=== PATIENT | female | born 1965 | race Caucasian/White ===

== ENCOUNTER 2017-07-30 18:12 | Emergency (ER) | END 2017-07-30 18:42 | disposition home or self-care (01) ==

== ENCOUNTER 2018-09-26 03:21 | Emergency (ER) | payer OTHER ==
[~2018-09-26] VITALS: Wt 96.3 kg
[~2018-09-26 03:21] MED LIST: ALBU8.5H8; ASPI-903 PO; ATOR10TA65 PO; CETI10CA PO; CITA-98 PO; DIVA500T34 PO; LANS30CA47 PO; LORA-408 PO; METO-448 PO; OLAN20TA3 PO; PETR5OIN3 TOP; PROM6.256; TRAM50TA2 PO
[2018-09-26] MEDS ORDERED: ONDANSETRON (ODT) 4 MG TAB ODT STA (05:19)
--- NOTE | 2018-09-26 05:19 | ERD ---
ER Documentation Chief Complaint Chief Complaint bib ra [id number] c/o headache/vomiting after eating about 2 hours ago HPI This is a 53-year-old female who was brought in by ambulance emergency d tio from her boarding care. Stated that she developed headache vomited once with nonbilious and nonbloody emesis after eating a chicken and 7-Up. Stated that the chicken does not taste good. LMP: Denies headache, head injury, loss of consciousness, dizziness, neck pain, neck stiffness, throat pain, difficulty swallowing, difficulty breathing lying flat, shoulder pain, chest pain, back pain, abdominal pain, nausea, vomiting, constipation, diarrhea, urinary symptoms, or possibility being , loss of bowel and bladder control, trauma, injury, falls, difficulty walking due to pain, numbness or tingling sensation, calf pain, recent travel, recent major surgery in the last 3 weeks, calf pain, recent long travel, recent exposure to any illness, recent antibiotic use in the last 3 months, fever, chills, seizures. Past medical history: Hyperlipidemia. Surgical history: Social: Denies smoking, use of alcoholic beverages, use of illegal drugs. ROS All systems reviewed and are negative except as per history of present illness. Medications Home Meds Active Scripts Acetaminophen* (Tylophen*) 500 Mg Capsule, 1 CAP PO Q6H PRN for PAIN AND OR ELEVATED TEMP, #20 CAP Prov:WILL TORRE F 09/26/18 Omeprazole* (Omeprazole*) 40 Mg Capsule.dr, 40 MG PO DAILY, #30 CAP Prov:WILL TORRE F 09/26/18 Ondansetron Hcl* (Zofran*) 4 Mg Tablet, 4 MG PO Q8H PRN for NAUSEA AND/OR VOMITING, #30 TAB Prov:JORGE AILABANSHANNANAR F 09/26/18 Cetirizine Hcl* (Zyrtec*) 10 Mg Capsule, 10 MG PO DAILY, #30 TAB.CHEW Prov:FOUZIA JJ NP 07/30/17 Petrolatum,White* (Vaseline*) 5 Gm Oint.pack, 1 APPLIC TOP BID, #30 PACKET Prov:FOUZIA JJ NP 07/30/17 Aspirin* (Aspirin* Chew) 81 Mg Tab.chew, 81 MG PO DAILY for 30 Days, TAB.CHEW Prov:EVERETT,NENAJoe Looney NP 04/23/16 Atorvastatin Calcium (Atorvastatin Calcium) 10 Mg Tablet, 10 MG PO QHS, #30 TAB Prov:NENA EVERETT [employer]. [employer] ANALYST 04/23/16 Lansoprazole* (Prevacid*) 30 Mg Capsule.dr, 30 MG PO DAILY, #20 Prov:MARLYS ERNST MD 11/28/14 Reported Medications Albuterol Sulfate* (Proair HFA*) 8.5 Gm Hfa.aer.ad 05/27/12 Promethazine Hcl* (Phenergan* Liq) 6.25 Mg/5 Ml Syrup 05/27/12 Lorazepam (Ativan) 1 Mg Tablet, 1 MG PO BEDTIME 05/27/12 Metoprolol Tartrate* (Lopressor*) 25 Mg Tab, 25 MG PO BID 05/27/12 Citalopram Hydrobromide* (Celexa*) 20 Mg Tablet, 20 MG PO BEDTIME 05/27/12 Olanzapine* (Zyprexa*) 20 Mg Tablet, 20 MG PO BEDTIME 05/27/12 Divalproex Sodium (Depakote Er) 500 Mg Tab.sr.24h, 1000 MG PO BEDTIME 05/27/12 Tramadol HCl (Tramadol HCl) 50 Mg Tablet, 50 MG PO BID 05/27/12 Allergies Allergies: Coded Allergies: No Known Allergy (Unverified , 04/22/16) PMhx/Soc History of Surgery: No Anesthesia Reaction: No Hx Neurological Disorder: Yes (ANXIETY, SCIZOAFFECTIVE DISORDER) Hx Respiratory Disorders: Yes (COPD) Hx Cardiac Disorders: Yes (HTN) Hx Psychiatric Problems: Yes (ANXIETY, SCHIZOAFFECTIVE DISORDER) Hx Miscellaneous Medical Probl: No Hx Alcohol Use: No Hx Substance Use: No Hx Tobacco Use: No Smoking Status: Never smoker Physical Exam Vitals Physical Exam Const: No acute distress Head: Atraumatic Eyes: Normal Conjunctiva ENT: Normal External Ears, Nose and Mouth. Throat: Able to control tongue movement. No drooling. Speaks full and clear sentences. Patent airway. No signs of airway obstruction. Neck: Full range of motion. No meningismus. Resp: Clear to auscultation bilaterally Cardio: Regular rate and rhythm, no murmurs Abd: Soft, non tender, non distended. Normal bowel sounds. Negative Elliott sign. Negative Tonya sign (heel jar test). Negative Rovsing sign. No CVA tenderness. Able to jump 5 times without developing abdominal pain. Skin: No petechiae or rashes Back: No midline or flank tenderness Ext: No cyanosis, or edema Neur: Awake and alert. No neurological deficit. Psych: Normal Mood and Affect Results 24 hrs Current Medications Medications Dose Sig/Pat Start Time Status Last (Trade) Ordered Route PRN Stop Time Admin Dose Reason Admin Ondansetron 4 mg ONCE STAT 09/26/18 DC 09/26/18 HCl (Zofran ODT 05:19 05:34 Odt) 09/26/18 05:21 Famotidine 40 mg ONCE ONCE 09/26/18 DC 09/26/18 (Pepcid) PO 05:30 05:35 09/26/18 05:31 Procedures/MDM Diagnostic tests: Clinical exam. Treatment: Zofran. Pepcid. Re-evaluation: No episode of emesis here in the emergency department. No abdominal tenderness. Able to jump twice without developing abdominal pain. Differential diagnosis I have low suspicion for sepsis, pancreatitis, cholecystitis, diverticulitis, bowel obstruction, appendicitis. Final diagnosis: Food poisoning. Prescription: Zofran. Pepcid. Tylenol. Follow-up with PCP in the next 24-48 hours. Come back here in the emergency dep artment for any new symptoms or any worsening symptoms. All questions and concerns were answered. Patient and family members verbalized understanding and agreed with plan of care. Hemodynamically stable on discharge. Departure Diagnosis: Primary Impression: Vomiting Additional Impression: Food poisoning Condition: Stable Additional Instructions: Follow-up with PCP in the next 24-48 hours. Come back here in the emergency department for any new symptoms or any worsening symptoms. WILL TORRE September 26, 2018 05:19
[2018-09-26] MEDS ORDERED: FAMOTIDINE 20 MG TAB PO ONE (05:30)
[2018-09-26] MEDS ORDERED: ONDA4TAB8 PO (06:00)
[2018-09-26] MEDS ORDERED: OMEP40CA6 PO (06:01)
[2018-09-26] MEDS ORDERED: ACET500C5 PO (06:01)
[2018-09-26 06:49] VITALS: BP 140/83; PULSE 81; RESP 18
== END 2018-09-26 06:52 | disposition home or self-care (01) ==
LOC: FTE 03:21
DX: T62.94XA Toxic effect of unspecified noxious substance eaten as food, undetermined, initial encounter (principal); I10 Essential (primary) hypertension; J44.9 Chronic obstructive pulmonary disease, unspecified
CPT/HCPCS: Z7502; Z7610; 99283

== ENCOUNTER 2018-11-13 02:29 | Emergency (ER) | payer OTHER ==
[~2018-11-13] VITALS: Ht 162.6 cm; Wt 100.0 kg
[~2018-11-13 02:29] MED LIST changes: +ACET500C5 PO; +OMEP40CA6 PO; +ONDA4TAB8 PO
[2018-11-13 02:33] VITALS: Ht 162.6 cm; Wt 100.0 kg
--- NOTE | 2018-11-13 02:34 | ERD ---
ER Documentation Chief Complaint Chief Complaint HPI 53-year-old female presents with chest pain with cough for the last 2 days. End orses subjective fevers at home, denies nausea or vomiting, she does not have any exertional symptoms. There are no alleviating factors. Symptoms are worsened by cough. Symptoms are constant. She has a history of developmental delay, and lives at a boarding care. ROS All systems reviewed and are negative except as per history of present illness. Medications Home Meds Active Scripts Acetaminophen* (Tylophen*) 500 Mg Capsule, 1 CAP PO Q6H PRN for PAIN AND OR ELEVATED TEMP, #20 CAP Prov:PASILABANWILL F 09/26/18 Omeprazole* (Omeprazole*) 40 Mg Capsule.dr, 40 MG PO DAILY, #30 CAP Prov:PASILABANWILL F 09/26/18 Ondansetron Hcl* (Zofran*) 4 Mg Tablet, 4 MG PO Q8H PRN for NAUSEA AND/OR VOMITING, #30 TAB Prov:PASILABANWILL Sahil 09/26/18 Cetirizine Hcl* (Zyrtec*) 10 Mg Capsule, 10 MG PO DAILY, #30 TAB.CHEW Prov:FOUZIA JJ NP 07/30/17 Petrolatum,White* (Vaseline*) 5 Gm Oint.pack, 1 APPLIC TOP BID, #30 PACKET Prov:FOUZIA JJ NP 07/30/17 Aspirin* (Aspirin* Chew) 81 Mg Tab.chew, 81 MG PO DAILY for 30 Days, TAB.CHEW Prov:NENA EVERETT NP 04/23/16 Atorvastatin Calcium (Atorvastatin Calcium) 10 Mg Tablet, 10 MG PO QHS, #30 TAB Prov:NENA EVERETT NP 04/23/16 Lansoprazole* (Prevacid*) 30 Mg Capsule., 30 MG PO DAILY, #20 Prov:MARLYS ERNST MD 11/28/14 Reported Medications Albuterol Sulfate* (Proair HFA*) 8.5 Gm Hfa.aer.ad 05/27/12 Promethazine Hcl* (Phenergan* Liq) 6.25 Mg/5 Ml Syrup 05/27/12 Lorazepam (Ativan) 1 Mg Tablet, 1 MG PO BEDTIME 05/27/12 Metoprolol Tartrate* (Lopressor*) 25 Mg Tab, 25 MG PO BID 05/27/12 Citalopram Hydrobromide* (Celexa*) 20 Mg Tablet, 20 MG PO BEDTIME 05/27/12 Olanzapine* (Zyprexa*) 20 Mg Tablet, 20 MG PO BEDTIME 05/27/12 Divalproex Sodium (Depakote Er) 500 Mg Tab.sr.24h, 1000 MG PO BEDTIME 05/27/12 Tramadol HCl (Tramadol HCl) 50 Mg Tablet, 50 MG PO BID 05/27/12 Allergies Allergies: Coded Allergies: No Known Allergy (Unverified , 04/22/16) PMhx/Soc History of Surgery: No Anesthesia Reaction: No Hx Neurological Disorder: Yes (ANXIETY, SCIZOAFFECTIVE DISORDER) Hx Respiratory Disorders: Yes (COPD) Hx Cardiac Disorders: Yes (HTN) Hx Psychiatric Problems: Yes (ANXIETY, SCHIZOAFFECTIVE DISORDER) Hx Miscellaneous Medical Probl: No Hx Alcohol Use: No Hx Substance Use: No Hx Tobacco Use: No Physical Exam Vitals Vital Signs Date Temp Pulse Resp B/P (MAP) Pulse Ox O2 O2 Flow FiO2 Time Delivery Rate 11/13/18 98.6 81 19 142/81 100 02:33 (101) Physical Exam Const: Well-appearing, nontoxic, no distress Head: Atraumatic Eyes: Normal Conjunctiva ENT: Normal External Ears, Nose and Mouth. Neck: Full range of motion. No meningismus. Resp: Clear to auscultation bilaterally, no wheezes rales or rhonchi Cardio: Regular rate and rhythm, no murmurs Abd: Soft, non tender, non distended, no rebound or guarding. Normal bowel sounds Skin: No petechiae or rashes Back: No midline or flank tenderness Ext: No cyanosis, or edema Neur: Awake and alert Psych: Normal Mood and Affect Result Diagram: 11/13/187 11/13/18256 Results 24 hrs Laboratory Tests Test 11/13/18 02:57 White Blood Count 9.1 10^3/ul Red Blood Count 3.95 10^6/ul Hemoglobin 12.6 g/dl Hematocrit 35.3 % Mean Corpuscular Volume 89.4 fl Mean Corpuscular Hemoglobin 31.9 pg Mean Corpuscular Hemoglobin Concent 35.7 g/dl Red Cell Distribution Width 11.9 % Platelet Count 234 10^3/UL Mean Platelet Volume 10.1 fl Immature Granulocytes % 0.300 % Neutrophils % 45.0 % Lymphocytes % 44.4 % Monocytes % 6.9 % Eosinophils % 2.7 % Basophils % 0.7 % Nucleated Red Blood Cells % 0.0 /100WBC Immature Granulocytes # 0.030 10^3/ul Neutrophils # 4.1 10^3/ul Lymphocytes # 4.0 10^3/ul Monocytes # 0.6 10^3/ul Eosinophils # 0.3 10^3/ul Basophils # 0.1 10^3/ul Nucleated Red Blood Cells # 0.0 10^3/ul Sodium Level 128 mmol/L Potassium Level 3.9 mmol/L Chloride Level 89 mmol/L Carbon Dioxide Level 24 mmol/L Anion Gap 15 Blood Urea Nitrogen 3 mg/dl Creatinine 0.36 mg/dl Est Glomerular Filtrat Rate mL/min > 60 mL/min Glucose Level 138 mg/dl Calcium Level 9.4 mg/dl Total Bilirubin 0.5 mg/dl Direct Bilirubin 0.00 mg/dl Indirect Bilirubin 0.5 mg/dl Aspartate Amino Transf (AST/SGOT) 17 IU/L Alanine Aminotransferase (ALT/SGPT) 20 IU/L Alkaline Phosphatase 54 IU/L Troponin I < 0.012 ng/ml Total Protein 7.4 g/dl Albumin 4.4 g/dl Globulin 3.00 g/dl Albumin/Globulin Ratio 1.46 Procedures/MDM this is a 53-year-old female with history of developmental delay who presents for evaluation of cough. On exam patient is afebrile and nontoxic, she is in no respiratory distress. Low suspicion for acute coronary syndrome, though given her age and limited history, cardiac work-up was performed which is negative. She is given a prescription for albuterol and cough syrup, she has no systemic signs of bacterial infection such as pneumonia, at discharge the patient was ambulatory and in no distress. EKG: Rate/Rhythm: Normal Sinus Rhythm QRS, ST, T-waves: No changes consistent w/ acute ischemia Impression: No evidence of ischemia or arrhythmia Departure Diagnosis: Primary Impression: Chest pain Chest pain type: unspecified Qualified Codes: R07.9 - Chest pain, unspecified Condition: Stable MARIUSZ AN MD Nov 13, 2018 02:34
[2018-11-13] MEDS ORDERED: FER325 PO (04:21)
[2018-11-13] MEDS ORDERED: METO-429 PO (04:21)
[2018-11-13] MEDS ORDERED: ZOLP10TA5 PO (04:21)
[2018-11-13] MEDS ORDERED: DOCU-159 PO (04:21)
[2018-11-13] MEDS ORDERED: ALBU18HF INHALATION ×2 (04:21→04:23)
[2018-11-13] MEDS ORDERED: TRAZ-149 PO (04:21)
[2018-11-13] MEDS ORDERED: D-ME473S2 PO (04:23)
[2018-11-13 06:13] VITALS: BP 105/77; PULSE 90; RESP 18
== END 2018-11-13 06:17 | disposition home or self-care (01) ==
LOC: E/R 02:29
DX: I10 Essential (primary) hypertension (principal); J44.9 Chronic obstructive pulmonary disease, unspecified; R40.2142 Coma scale, eyes open, spontaneous, at arrival to emergency department; R40.2362 Coma scale, best motor response, obeys commands, at arrival to emergency department; R40.2252 Coma scale, best verbal response, oriented, at arrival to emergency department; Z79.82 Long term (current) use of aspirin
CPT/HCPCS: 71045; 80053; 84484; 85025; 93005; Z7502